=== PATIENT | female | born 1995 | race Caucasian/White ===

== ENCOUNTER 2024-05-30 17:39 | Emergency (ER) | payer SELFPAY ==
[2024-05-30 17:40] VITALS: BP 123/96
[2024-05-30 17:41] VITALS: BP 123/96
--- NOTE | 2024-05-30 17:54 | ED.GENMED ---
History of Present Illness
General
Chief Complaint: Overdose Unintentional
Time Seen by Provider: 05/30/24 17:54
History of Present Illness
History of Present Illness:
TIME OF INITIAL ENCOUNTER: 6 PM
HPI: Patient comes in after an opiate overdose. The patient states that she uses IV heroin only. Notes indicate that she overdosed on fentanyl. She was given Narcan prior to arrival. She is somewhat of a limited historian and refuses to give
details.
EXAM:
GENERAL: Patient cannot sit still, cannot keep the gown on and frequently exposes herself, however prior to leaving she did improve
HEENT: Moist oral mucosa
CARDIOVASCULAR: No murmurs, normal heart rate, regular rhythm, No chest wall tenderness
PULMONARY: No respiratory distress, breath sounds are clear and equal
ABDOMEN: Soft with no peritoneal signs, no tenderness
NEUROLOGIC: Excellent strength all extremities, no coordination deficits
PSYCHIATRIC: Insight is somewhat impaired
EXTREMITIES: Nontender, no edema, moves all extremities equally
SKIN: Lesions on the skin consistent with IV drug use
NUMBER AND COMPLEXITY OF PROBLEMS ADDRESSED AT THE ENCOUNTER
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
� Acute Exacerbation and/or Progression of Chronic Illness: This is an acute problem
� Differential Diagnosis includes: Opiate use disorder, opiate overdose
AMOUNT AND/OR COMPLEXITY OF DATA TO BE REVIEWED AND ANALYZED
� I performed an independent evaluation of and my interpretation is:
EKG:
CT:
X-rays:
Laboratory Studies: White count 13.4, hemoglobin normal, bicarb slightly low at 20, glucose 203, hCG negative
Other:
� Review of other/old records: EMS notes�was hemodynamically stable
� Clinical information was obtained by an independent historian: None needed but I did review EMS paperwork
� Prescriptions/Medications Considered but not given:
� Further testing considered but not performed:
RISK OF COMPLICATIONS AND/OR MORBIDITY OR MORTALITY OF PATIENT MANAGEMENT
� Social determinants of health affecting care: Patient states that she lives in [place], [place]
� Discussion with other providers: I spoke to SRIKANTH who evaluated patient at bedside
� Escalation of care including admission/observation vs risk of discharge considered:
ANY OTHER UPDATES:
7:20 PM: The patient had escalating behavior after speaking to SRIKANTH. She is demanding to leave. She is awake and alert talking on her phone trying to find a ride home. She refused to sign paperwork regarding AGAINST MEDICAL ADVICE. The patient
adamantly tells me that this was not a suicidal attempt. This was recreational use. She had no intent of harming herself. Again, I am offered multiple times to help this patient and she adamantly refuses any help.
Phy Exam
Physical Exam
Physical Exam:
See HPI
Course
Orders/Labs/Results
Orders:
Orders
05/30/24 18:04
Lorazepam [Ativan] 1 mg IV NOW STA
Test Result ONCE
05/30/24 18:47
Complete Blood Count/With Diff Urgent
Comprehensive Metabolic Panel Urgent
HCG, Serum Qualitative Screen Urgent
Abnormal Lab Results
05/30/24
18:47
WBC 13.4 H 10^3/uL
(4.8-10.8)
RBC 3.73 L 10^6/uL
(4.20-5.40)
Hct 34.8 L %
(37.0-47.0)
MCH 32.2 H pg
(27.0-31.0)
Abs Immat Gran (auto) 0.1 H 10^3/uL
(0-0.05)
Absolute Neuts (auto) 10.8 H 10^3/uL
(1.4-6.5)
Neutrophils % 80.6 H %
(42.2-75.2)
Lymphocytes % 14.6 L %
(20.5-51.1)
Carbon Dioxide 20 L mmol/L
(22-30)
Glucose 203 H mg/dl
(70-99)
05/30/24 18:47
05/30/24 18:47
Vital Signs
Initial and Last Documented VS:
Initial Vital Signs
Temp Pulse Resp BP Pulse Ox
36.6 C 75 20 123/96 99
05/30/24 17:40 05/30/24 17:40 05/30/24 17:40 05/30/24 17:40 05/30/24 17:40
Last Documented Vital Signs
Temp Pulse Resp BP Pulse Ox
36.6 C 76 24 94/64 100
05/30/24 17:40 05/30/24 19:00 05/30/24 17:53 05/30/24 19:00 05/30/24 19:16
*Critical Care Note
Total Time (30-74mins, 75-104mins- exclusive of procedures): Not Applicable
ED Attending Note
-
Portions of this chart may have been created with voice recognition software.� Occasional wrong word or��sound alike� substitutions may have occurred due to the inherent limitations of voice recognition software.
Discharge Plan
Departure
Patient Disposition: Against Medical Advice
Date of Disposition: 05/30/24
Time of Disposition: 19:25
Discharge Problem:
Opiate or related narcotic overdose
Instructions: Opioid Overdose (DC)
Activity Restrictions/Additional Instructions:
I had somebody from [facility] talk to you. You refused further treatment. You refused any further evaluation here in the emergency department.
Interventions
Interventions:
*Risk Screen - Suicide Last Done: 05/30/24 17:40
*General Assessment Last Done: 05/30/24 17:40
*Neglect/Abuse Screening Last Done: 05/30/24 17:40
*ED COVID-19 Vaccine History Last Done: 05/30/24 17:40
*Nursing Disposition Last Done: 05/30/24 19:45
ED- Cardiac Assessment Last Done: 05/30/24 18:52
ED- Neurological Assessment Last Done: 05/30/24 18:52
ED-Psychological Assessment Last Done: 05/30/24 18:52
ED- Pulmonary Assessment Last Done: 05/30/24 18:52
Discharge Date and Time
Discharge Date/Time: 05/30/24 19:39
Print Language: WELSH
[2024-05-30 18:03] VITALS: BP 111/76
[2024-05-30 18:52] LABS: % Basophils 0.3 % (0-2); % Immature Granulocytes 0.4 % (0-0.5); % Lymphocytes 14.6 % (20.5-51.1); % Monocytes 4.1 % (1.7-9.3); % Neutrophils 80.6 % (42.2-75.2); Absolute Immature Granulocytes 0.1 10^3/uL (0-0.05); Absolute Monocytes 0.6 10^3/uL (0.1-0.6); Absolute Neutrophils 10.8 10^3/uL (1.4-6.5); Hematocrit 34.8 % (37.0-47.0); Mean Corp Hgb Conc. 34.5 g/dL (33.0-37.0); Mean Corpuscular Hgb 32.2 pg (27.0-31.0); Mean Corpuscular Volume 93.3 fL (81.0-99.0); Mean Platelet Volume 10.4 fL (7.4-10.4); Nucleated Red Blood Cells % 0 %; Platelet Count 267 10^3/uL (130-400); Red Blood Cell Count 3.73 10^6/uL (4.20-5.40); Red Cell Dist. Width 11.6 % (11.5-14.5); White Blood Cell Count 13.4 10^3/uL (4.8-10.8)
[2024-05-30 19:00] VITALS: BP 94/64
[2024-05-30 19:04] LABS: HCG, Serum Qualitative Screen Negative
[2024-05-30 19:09] LABS: ALT (SGPT) 16 U/L (0-35); AST (SGOT) 24 U/L (14-36); Albumin 4.3 g/dl (3.5-5.0); Alkaline Phosphatase 49 U/L (38-126); Blood Urea Nitrogen 15 mg/dl (7-17); Calcium 9.5 mg/dl (8.4-10.2); Carbon Dioxide 20 mmol/L (22-30); Chloride 105 mmol/L (98-107); Glucose 203 mg/dl (70-99); Potassium 4.3 mmol/L (3.5-5.1); Sodium 137 mmol/L (135-145); Total Bilirubin 0.3 mg/dl (0.2-1.3); Total Protein 7.1 g/dl (6.3-8.2); eGFR > 60.00
== END 2024-05-30 19:39 | disposition left against medical advice (07) ==
LOC: EMR 17:39
PROVIDERS: EMERGENCY PHYSICIAN Emergency Medicine
DX: T40.2X1A Poisoning by other opioids, accidental (unintentional), initial encounter (principal); F11.90 Opioid use, unspecified, uncomplicated; Z53.29 Procedure and treatment not carried out because of patient's decision for other reasons
CPT/HCPCS: 99284; 80053; 84703; 85025; 93005

== ENCOUNTER 2024-07-05 00:45 | Emergency (ER) | payer SELFPAY ==
[2024-07-05 00:53] VITALS: BP 124/84
[2024-07-05 01:19] LABS: % Basophils 0.2 % (0-2); % Eosinophils 1.5 % (0-6); % Immature Granulocytes 0.4 % (0-0.5); % Lymphocytes 22.9 % (20.5-51.1); % Monocytes 8.1 % (1.7-9.3); % Neutrophils 66.9 % (42.2-75.2); Absolute Eosinophils 0.2 10^3/uL (0-0.7); Absolute Immature Granulocytes 0.1 10^3/uL (0-0.05); Absolute Lymphocytes 2.6 10^3/uL (1.2-3.4); Absolute Monocytes 0.9 10^3/uL (0.1-0.6); Absolute Neutrophils 7.7 10^3/uL (1.4-6.5); Hematocrit 36.9 % (37.0-47.0); Hemoglobin 13.1 g/dL (12.0-16.0); Mean Corp Hgb Conc. 35.5 g/dL (33.0-37.0); Mean Corpuscular Hgb 30.7 pg (27.0-31.0); Mean Corpuscular Volume 86.4 fL (81.0-99.0); Mean Platelet Volume 9.3 fL (7.4-10.4); Nucleated Red Blood Cells % 0 %; Platelet Count 340 10^3/uL (130-400); Red Blood Cell Count 4.27 10^6/uL (4.20-5.40); Red Cell Dist. Width 11.9 % (11.5-14.5); White Blood Cell Count 11.5 10^3/uL (4.8-10.8)
[2024-07-05 01:40] LABS: Blood Urea Nitrogen 20 mg/dl (7-17); Calcium 9.7 mg/dl (8.4-10.2); Carbon Dioxide 19 mmol/L (22-30); Chloride 104 mmol/L (98-107); Glucose 102 mg/dl (70-99); Potassium 4.1 mmol/L (3.5-5.1); Sodium 137 mmol/L (135-145); eGFR > 60.00
[2024-07-05 04:42] VITALS: BP 109/78; BMI 22.0
[2024-07-05 06:55] VITALS: BP 105/73
[2024-07-05 07:00] VITALS: BP 95/74
--- NOTE | 2024-07-05 07:03 | ED.GENMED ---
History of Present Illness
General
Chief Complaint: Throat Problem
Source: patient
Exam Limitations: none
Time Seen by Provider: 07/05/24 06:55
Nursing documentation reviewed up to this point in time: agreed with
History of Present Illness
History of Present Illness:
28-year-old female presents Emergency Department due to a sore throat and pus drainage. She was recently hospitalized for tonsillitis at [facility]. She was tested for strep, it was negative. She was sent home on clindamycin and
Celebrex. She states she had a CT scan that did not show an abscess, but is worsening now.
Past History
Past History
ED Past Medical History: Asthma and Other (PCOS, tonsillitis)
ED Past Surgical History: None
Social History
Tobacco: Non-smoker
Alcohol: None
Drug: Narcotics
Review of Systems
Review of Systems
Allergies reviewed?: Yes
All Other Systems: Not applicable
Constitutional: Reports no symptoms
EENT: Reports sore throat
Cardiac: Reports no symptoms
ABD/GI: Reports no symptoms
: Reports no symptoms
Musculoskeletal: Reports no symptoms
Skin: Reports no symptoms
Neurological: Reports no symptoms
Endocrine: Reports no symptoms
Hematologic/Lymphatic: Reports no symptoms
Psychiatric: Reports no symptoms
Phy Exam
Physical Exam
Physical Exam:
Physical Exam
General: no apparent distress, not acutely ill
Neck: supple. no meningeal signs. normal posterior pharynx
Heart: s1/s2 regular rate and rhythm, no murmur. equal radial
pulses.
HEENT: Pupils equal round reactive to light, EOMI, left-sided tonsillar enlargement with moderate exudate
Lungs: no acute respiratory distress. clear bilaterally
Abdomen: normal bowel sounds. not tender. no CVAT
Neuro: alert and oriented. no focal neurological deficits cranial nerves II through XII intact
Skin: no rash
Psychiatric: well kept. interactive and cooperative
Extremities: no edema. no calf tenderness. negative homans. good distal pulses
Course
Orders/Labs/Results
Orders:
Orders
07/05/24 01:09
Basic Metabolic Panel Urgent
Complete Blood Count/With Diff Urgent
HCG, Serum Qualitative Screen Urgent
Comment: ADD ON
Rapid Strep Group A Urgent
ROSALINA Source: Throat/Pharynx
Specimen Description:
Date Specimen was Collected: 07/05/24
Time Specimen was Collected: 01:01
07/05/24 07:01
CT Neck With Iv Contrast Urgent
Comment:
Reason For Exam: left tonsillar/pharyngeal erythema, swelling
Dexamethasone Sod Phosphate [Decadron] 10 mg IV NOW STA
07/05/24 07:04
Lactated Ringers [Lr] 1,000 ml IV BOLUS
07/05/24 07:08
Add On- LAB Urgent
Tests Added?: HCG qual, serum
07/05/24 07:28
Monotest Urgent
Abnormal Lab Results
07/05/24
01:09
WBC 11.5 H 10^3/uL
(4.8-10.8)
Hct 36.9 L %
(37.0-47.0)
Abs Immat Gran (auto) 0.1 H 10^3/uL
(0-0.05)
Absolute Neuts (auto) 7.7 H 10^3/uL
(1.4-6.5)
Absolute Monos (auto) 0.9 H 10^3/uL
(0.1-0.6)
Carbon Dioxide 19 L mmol/L
(22-30)
BUN 20 H mg/dl
(7-17)
Glucose 102 H mg/dl
(70-99)
07/05/24 01:09
07/05/24 01:09
Vital Signs
Initial and Last Documented VS:
Initial Vital Signs
Temp Pulse Resp BP Pulse Ox
97.9 F 106 22 124/84 98
07/05/24 00:53 07/05/24 00:53 07/05/24 00:53 07/05/24 00:53 07/05/24 00:53
Last Documented Vital Signs
Temp Pulse Resp BP Pulse Ox
98.5 F 72 20 126/71 99
07/05/24 09:56 07/05/24 09:56 07/05/24 09:56 07/05/24 09:56 07/05/24 09:56
MDM/Problems Addressed
Differential Diagnosis Includes:
Peritonsillar abscess, tonsillitis
MDM/Problems Addressed:
28-year-old female with tonsillitis, unclear etiology. Strep negative. Patient will continue clindamycin, and short course of prednisone. Follow-up with ENT at [facility]
Chronic conditions affecting care: Asthma
Acute Exacerbation and/or Progression of Chronic Illness: Asthma
*Radiology
Radiology exam reviewed: radiology read reviewed (CT neck shows tonsillitis, mild prevertebral edema, no abscess)
*Pulse Oximetry
Patient hypoxic: no
*Critical Care Note
Total Time (30-74mins, 75-104mins- exclusive of procedures): Not Applicable
Patient Management
Discussion with other providers: [employer] (ENT, Dr. Jesus)
Escalation/DeEscalation of care consider admission/obs:
Admit not indicated
ED Attending Note
-
Portions of this chart may have been created with voice recognition software.� Occasional wrong word or��sound alike� substitutions may have occurred due to the inherent limitations of voice recognition software.
Discharge Plan
Departure
Patient Disposition: Home (Routine Discharge)
Date of Disposition: 07/05/24
Time of Disposition: 10:06
Patient with high blood pressure during this ER visit?: Yes
Condition: Good
Discharge Problem:
Acute tonsillitis
Instructions: Sore throat in adults, BLOOD PRESSURE
Prescriptions:
New
prednisone 10 mg tablet
50 mg PO DAILY Qty: 25 0RF
Referrals:
NONE,* [Family Provider] -
Interventions
Interventions:
*Risk Screen - Suicide Last Done: 07/05/24 00:53
*General Assessment Last Done: 07/05/24 06:55
*Neglect/Abuse Screening Last Done: 07/05/24 00:53
ED- Fall Risk Assessment Last Done: 07/05/24 04:49
*ED COVID-19 Vaccine History Last Done: 07/05/24 06:55
*Nursing Disposition Last Done: 07/05/24 10:16
ED-EENT Assessment Last Done: 07/05/24 04:49
ED- Pulmonary Assessment Last Done: 07/05/24 04:49
Discharge Date and Time
Discharge Date/Time: 07/05/24 10:18
Print Language: THAI
[2024-07-05] MEDS: LR 1000 IV (07:27)
[2024-07-05] MEDS: DECADRON 10 MG IV (07:27)
[2024-07-05 07:48] LABS: HCG, Serum Qualitative Screen Negative
[2024-07-05 08:00] VITALS: BP 105/67
[2024-07-05 08:09] LABS: Monotest Negative (Negative)
[2024-07-05 09:56] VITALS: BP 126/71
--- NOTE | 2024-07-05 09:56 | EDRN ---
the pt pressed the call gordon and this RN entered the pts room, the pt stated that she needed to use the bathroom, this RN unhooked the pt from the monitor and the pt was able to ambulate to the bathroom with no issues, the pt ambulated back to the
stretcher and is resting in stretcher in the lowest position, side rails up x2, call gordon within reach, HOB elevated, no s/s of distress, awaiting for Dr. Bermudez to come to the pts bedside to update the pt on the plan of care
--- NOTE | 2024-07-05 10:10 | EDRN ---
Dr. Bermudez currently at the pts bedside discussing discharge with the pt, this RN provided the pt with ice water per the providers request and the pt was able to drink water with no issues
== END 2024-07-05 10:18 | disposition home or self-care (01) ==
LOC: EMR 00:45
PROVIDERS: Emergency Medicine; EMERGENCY PHYSICIAN Emergency Medicine
DX: J03.90 Acute tonsillitis, unspecified (principal); R03.0 Elevated blood-pressure reading, without diagnosis of hypertension; J45.909 Unspecified asthma, uncomplicated
CPT/HCPCS: 99285; 96374; 96361; 70491; 80048; 84703; 85025; 86308; 87070; 87880; Q9967

== ENCOUNTER 2024-08-04 08:53 | Emergency (ER) | payer OTHER, SELFPAY ==
[2024-08-04 08:55] VITALS: BP 118/86
--- NOTE | 2024-08-04 10:09 | ED.GENMED ---
History of Present Illness
General
Chief Complaint: Skin Problem
Time Seen by Provider: 08/04/24 09:59
History of Present Illness
History of Present Illness:
28-year-old female presents to the emergency department for evaluation of diffuse itchy rash to the entire body for the past 2 weeks. Denies any new medications or topical products used. She did have strep pharyngitis prior to this however states
that her antibiotics were completed before the onset of the rash. Spread from the extremities up toward the face, spares the palms and soles. Not worse at nighttime.
Past History
Past History
ED Past Medical History: Asthma and Other (PCOS, tonsillitis)
ED Past Surgical History: None
Social History
Tobacco: Non-smoker
Alcohol: None
Drug: Narcotics
Review of Systems
Review of Systems
Allergies reviewed?: Yes
All Other Systems: ROS reviewed and negative except as documented in HPI and ROS
Phy Exam
Physical Exam
Physical Exam:
GEN: Well appearing, NAD, WDWN
HEENT: Oral mucosa moist, no scleral icterus, no intra oral lesions, slight tonsillar hypertrophy no exudates
Cardiac: Regular rate
Lung: No respiratory distress, no tachypnea
MSK: No gross deformity or injuries
Skin: Good color, no pallor or jaundice, widespread maculopapular exanthem with central scaling essentially encompassing entire body, sparing pales and soles.
Neuro: AO x3, moves all extremities freely
Psych: Calm, cooperative
Course
Vital Signs
Initial and Last Documented VS:
Initial Vital Signs
Temp Pulse Resp BP Pulse Ox
98.4 F 108 18 118/86 98
08/04/24 08:55 08/04/24 08:55 08/04/24 08:55 08/04/24 08:55 08/04/24 08:55
Last Documented Vital Signs
Temp Pulse Resp BP Pulse Ox
98.4 F 108 18 118/86 98
08/04/24 08:55 08/04/24 08:55 08/04/24 08:55 08/04/24 08:55 08/04/24 08:55
MDM/Problems Addressed
MDM/Problems Addressed:
Likely viral exanthem, apparently began after a course of antibiotics for strep so not likely drug exanthem. Will treat with steroids due to widespread involvement
*Critical Care Note
Total Time (30-74mins, 75-104mins- exclusive of procedures): Not Applicable
ED Attending Note
-
Portions of this chart may have been created with voice recognition software.� Occasional wrong word or��sound alike� substitutions may have occurred due to the inherent limitations of voice recognition software.
Discharge Plan
Departure
Patient Disposition: Home (Routine Discharge)
Date of Disposition: 08/04/24
Time of Disposition: 10:15
Patient with high blood pressure during this ER visit?: No
Discharge Problem:
Dermatitis
Instructions: Viral Exanthem ED
Prescriptions:
New
prednisone 20 mg tablet
40 mg PO DAILY 5 Days Qty: 10 0RF
No Action
prednisone 10 mg tablet
50 mg PO DAILY Qty: 25 0RF
Stand Alone Forms: Return to Work
Interventions
Interventions:
*Risk Screen - Suicide Last Done: 08/04/24 08:55
*General Assessment Last Done: 08/04/24 08:55
*Neglect/Abuse Screening Last Done: 08/04/24 08:55
ED- Fall Risk Assessment Last Done: 08/04/24 10:16
*ED COVID-19 Vaccine History Last Done: 08/04/24 08:55
*Nursing Disposition Last Done: 08/04/24 10:24
ED-Skin Assessment Last Done: 08/04/24 10:15
Discharge Date and Time
Discharge Date/Time: 08/04/24 10:25
Print Language: MALAWIAN
== END 2024-08-04 10:25 | disposition home or self-care (01) ==
LOC: EMR 08:53
PROVIDERS: EMERGENCY PHYSICIAN Emergency Medicine
DX: L30.9 Dermatitis, unspecified (principal)
CPT/HCPCS: 99282

== ENCOUNTER 2024-08-11 19:15 | Emergency (ER) | payer OTHER, SELFPAY ==
[2024-08-11 19:29] VITALS: BP 122/86
[2024-08-11 19:53] LABS: % Basophils 0.2 % (0-2); % Eosinophils 1.8 % (0-6); % Immature Granulocytes 0.3 % (0-0.5); % Lymphocytes 16.2 % (20.5-51.1); % Neutrophils 76.5 % (42.2-75.2); Absolute Eosinophils 0.2 10^3/uL (0-0.7); Absolute Lymphocytes 1.6 10^3/uL (1.2-3.4); Absolute Monocytes 0.5 10^3/uL (0.1-0.6); Absolute Neutrophils 7.5 10^3/uL (1.4-6.5); Hemoglobin 12.5 g/dL (12.0-16.0); Mean Corp Hgb Conc. 32.9 g/dL (33.0-37.0); Mean Corpuscular Hgb 29.3 pg (27.0-31.0); Mean Platelet Volume 9.5 fL (7.4-10.4); Nucleated Red Blood Cells % 0 %; Platelet Count 344 10^3/uL (130-400); Red Blood Cell Count 4.27 10^6/uL (4.20-5.40); Red Cell Dist. Width 12.9 % (11.5-14.5); White Blood Cell Count 9.8 10^3/uL (4.8-10.8)
[2024-08-11 20:11] LABS: ALT (SGPT) 21 U/L (0-35); AST (SGOT) 24 U/L (14-36); Albumin 4.1 g/dl (3.5-5.0); Alkaline Phosphatase 134 U/L (38-126); Blood Urea Nitrogen 15 mg/dl (7-17); Calcium 9.4 mg/dl (8.4-10.2); Carbon Dioxide 28 mmol/L (22-30); Chloride 98 mmol/L (98-107); Glucose 88 mg/dl (70-99); Potassium 4.4 mmol/L (3.5-5.1); Sodium 135 mmol/L (135-145); Total Bilirubin 0.7 mg/dl (0.2-1.3); Total Protein 7.7 g/dl (6.3-8.2); eGFR > 60.00
== END 2024-08-11 22:25 ==
LOC: EMR 19:15
PROVIDERS: Emergency Medicine
DX: R21 Rash and other nonspecific skin eruption (principal); Z53.21 Procedure and treatment not carried out due to patient leaving prior to being seen by health care provider
CPT/HCPCS: 99281; 80053; 85025

== ENCOUNTER 2024-09-06 23:32 | Emergency (ER) | payer OTHER, SELFPAY ==
[2024-09-06 23:39] VITALS: BP 101/68
[2024-09-07 00:47] VITALS: BP 100/85
[2024-09-07 01:10] LABS: % Basophils 0.4 % (0-2); % Eosinophils 3.2 % (0-6); % Immature Granulocytes 0.2 % (0-0.5); % Lymphocytes 21.8 % (20.5-51.1); % Monocytes 5.4 % (1.7-9.3); Absolute Eosinophils 0.3 10^3/uL (0-0.7); Absolute Lymphocytes 1.8 10^3/uL (1.2-3.4); Absolute Monocytes 0.5 10^3/uL (0.1-0.6); Absolute Neutrophils 5.7 10^3/uL (1.4-6.5); Hematocrit 39.2 % (37.0-47.0); Hemoglobin 13.1 g/dL (12.0-16.0); Mean Corp Hgb Conc. 33.4 g/dL (33.0-37.0); Mean Corpuscular Hgb 29.6 pg (27.0-31.0); Mean Corpuscular Volume 88.7 fL (81.0-99.0); Nucleated Red Blood Cells % 0 %; Platelet Count 330 10^3/uL (130-400); Red Blood Cell Count 4.42 10^6/uL (4.20-5.40); Red Cell Dist. Width 13.6 % (11.5-14.5); White Blood Cell Count 8.3 10^3/uL (4.8-10.8)
--- NOTE | 2024-09-07 01:14 | ED.GENMED ---
History of Present Illness
<Levi Nicholson DO - Last Filed: 09/07/24 03:00>
General
Chief Complaint: Throat Problem
Source: patient and records
Exam Limitations: none
Time Seen by Provider: 09/07/24 00:55
Nursing documentation reviewed up to this point in time: agreed with
History of Present Illness
History of Present Illness:
28-year-old female asthma substance abuse, presents for a rash started 4 to 5 weeks ago seen in the ER diagnosed with pharyngitis, diagnosed with a rash, treated with steroids with some antibiotics, without much improvement, states she has a hoarse
voice, no fever rashes diffuse worse on her upper extremities, has been coughing, wheezing, admitted [facility] previously for asthma, no fevers no hemoptysis
Past History
<Levi Nicholson DO - Last Filed: 09/07/24 03:00>
Past History
ED Past Medical History: Asthma and Other (PCOS, tonsillitis)
ED Past Surgical History: None
Social History
Tobacco: Non-smoker
Alcohol: None
Drug: Narcotics
Personal: Single
Living: with roommate (10 roommates)
Employment: Employed
Review of Systems
<Levi Nicholson DO - Last Filed: 09/07/24 03:00>
Review of Systems
All Other Systems: Not applicable
Constitutional: Denies fever or fatigue
EENT: Reports sore throat and mouth pain
Respiratory: Reports cough and trouble breathing
Cardiac: Reports no symptoms
ABD/GI: Reports no symptoms
Skin: Reports itching and rash
Phy Exam
<Levi Nicholson DO - Last Filed: 09/07/24 03:00>
Physical Exam
Physical Exam:
Physical Exam
General: Chronically ill female coughing sounds hoarse
Neck: Posterior pharynx is red no exudates no drooling
Heart: s1/s2 regular rate and rhythm, no murmur. equal radial pulses.
Lungs: Expiratory wheeze
Abdomen: Nontender
Neuro: alert and oriented. no focal neurological deficits
Skin: Diffuse red raised dermatitis
Psychiatric: well kept. interactive and cooperative
Extremities: Hidradenitis in her left axilla
Sepsis
<Dori Hernandez, DO - Last Filed: 09/07/24 06:51>
Sepsis Screening
Sepsis Assessment: Sepsis Ruled Out
Sepsis Screen
Sepsis Screen: Sepsis Ruled Out
Date: 09/07/24
Time: 06:51
Course
<Levi Nicholson, DO - Last Filed: 09/07/24 03:00>
Orders/Labs/Results
Orders:
Orders
09/06/24 23:44
CBC/With ESR Urgent
CMP [Comprehensive Metabolic Panel] Urgent
09/07/24 00:54
HCG, Serum Qualitative Screen Urgent
Comment: ADD ON
09/07/24 00:55
C-Reactive Protein Urgent
Comment: ADD ON
09/07/24 01:11
Dexamethasone Sod Phosphate [Decadron] 10 mg IV NOW STA
Diphenhydramine [Benadryl] 25 mg IV NOW STA
09/07/24 01:12
Add On- LAB Urgent
Tests Added?: hcg qualitative
Ipratropium/Albuterol Sulfate [Duoneb] 3 ml INH R NOW STA
09/07/24 01:13
0.9% Sodium Chloride 1000 ml [Nss] 1,000 ml IV BOLUS
EPINEPHrine PF [Adrenalin] 0.3 mg IM NOW STA
CR Chest - 2 Views Urgent
Comment:
Reason For Exam: cough
09/07/24 01:19
Famotidine [Pepcid] 20 mg IV NOW STA
09/07/24 01:33
Add On- LAB Urgent
Tests Added?: crp
Soft Tissue, Neck [CR Soft Tissue Neck ] Urgent
Comment:
Reason For Exam: sore throat
09/07/24 01:38
Influenza A+B Rapid Molecular Urgent
ROSALINA Source: Nasal Swab
Specimen Description:
09/07/24 02:07
Rapid Strep Group A Urgent
ROSALINA Source: T
Specimen Description:
09/07/24 02:12
CT Neck With Iv Contrast Urgent
Comment:
Reason For Exam: Stridor inability to swallow
09/07/24 22:00
Famotidine [Pepcid] 20 mg IV HS
Abnormal Lab Results
09/07/24 09/07/24
00:54 00:55
ESR 80 H mm/hour
(0-20)
BUN 18 H mg/dl
(7-17)
Glucose 104 H mg/dl
(70-99)
C-Reactive Protein 19.80 H mg/L
(0.0-10.00)
Total Protein 8.5 H g/dl
(6.3-8.2)
09/07/24 00:55
09/07/24 00:54
Vital Signs
Initial and Last Documented VS:
Initial Vital Signs
Temp Pulse Resp BP Pulse Ox
98.9 F 102 24 101/68 98
09/06/24 23:39 09/06/24 23:39 09/06/24 23:39 09/06/24 23:39 09/06/24 23:39
Last Documented Vital Signs
Temp Pulse Resp BP Pulse Ox
98.9 F 69 19 102/62 98
09/06/24 23:39 09/07/24 04:23 09/07/24 04:23 09/07/24 04:00 09/07/24 04:15
<Dori Hernandez, DO - Last Filed: 09/07/24 06:51>
Orders/Labs/Results
Orders:
Orders
09/06/24 23:44
CBC/With ESR Urgent
CMP [Comprehensive Metabolic Panel] Urgent
09/07/24 00:54
HCG, Serum Qualitative Screen Urgent
Comment: ADD ON
09/07/24 00:55
C-Reactive Protein Urgent
Comment: ADD ON
09/07/24 01:11
Dexamethasone Sod Phosphate [Decadron] 10 mg IV NOW STA
Diphenhydramine [Benadryl] 25 mg IV NOW STA
09/07/24 01:12
Add On- LAB Urgent
Tests Added?: hcg qualitative
Ipratropium/Albuterol Sulfate [Duoneb] 3 ml INH R NOW STA
09/07/24 01:13
0.9% Sodium Chloride 1000 ml [Nss] 1,000 ml IV BOLUS
EPINEPHrine PF [Adrenalin] 0.3 mg IM NOW STA
CR Chest - 2 Views Urgent
Comment:
Reason For Exam: cough
09/07/24 01:19
Famotidine [Pepcid] 20 mg IV NOW STA
09/07/24 01:33
Add On- LAB Urgent
Tests Added?: crp
Soft Tissue, Neck [CR Soft Tissue Neck ] Urgent
Comment:
Reason For Exam: sore throat
09/07/24 01:38
Influenza A+B Rapid Molecular Urgent
ROSALINA Source: Nasal Swab
Specimen Description:
09/07/24 02:07
Rapid Strep Group A Urgent
ROSALINA Source: T
Specimen Description:
09/07/24 02:12
CT Neck With Iv Contrast Urgent
Comment:
Reason For Exam: Stridor inability to swallow
09/07/24 22:00
Famotidine [Pepcid] 20 mg IV HS
Abnormal Lab Results
09/07/24 09/07/24
00:54 00:55
ESR 80 H mm/hour
(0-20)
BUN 18 H mg/dl
(7-17)
Glucose 104 H mg/dl
(70-99)
C-Reactive Protein 19.80 H mg/L
(0.0-10.00)
Total Protein 8.5 H g/dl
(6.3-8.2)
09/07/24 00:55
09/07/24 00:54
Vital Signs
Initial and Last Documented VS:
Initial Vital Signs
Temp Pulse Resp BP Pulse Ox
98.9 F 102 24 101/68 98
09/06/24 23:39 09/06/24 23:39 09/06/24 23:39 09/06/24 23:39 09/06/24 23:39
Last Documented Vital Signs
Temp Pulse Resp BP Pulse Ox
98.9 F 69 19 102/62 98
09/06/24 23:39 09/07/24 04:23 09/07/24 04:23 09/07/24 04:00 09/07/24 04:15
<Levi Nicholson DO - Last Filed: 09/07/24 03:00>
MDM/Problems Addressed
Differential Diagnosis Includes:
Allergic autoimmune infectious viral
MDM/Problems Addressed:
Rash cough sore throat asthma
Chronic conditions affecting care: Asthma
Acute Exacerbation and/or Progression of Chronic Illness:
Substance abuse
Acute Exacerbation and/or Progression of Chronic Illness: Asthma
<Levi Nicholson DO - Last Filed: 09/07/24 03:00>
*Radiology
Radiology exam reviewed: preliminary read by ED provider
*Pulse Oximetry
Patient hypoxic: no
*Allergy And Immunology Specialist Interpretation
Rate: normal
Interpretation: normal
Heart Rate: 78
Rhythm: sinus
*Critical Care Note
Total Time (30-74mins, 75-104mins- exclusive of procedures): Not Applicable
<Dori Hernandez DO - Last Filed: 09/07/24 06:51>
*Radiology
Radiology exam reviewed: radiology read reviewed (CAT scan compared to previous July 05, 2021. Unchanged mild thickening of the epiglottis with slight improvement of submucosal edema and in the supraglottic larynx. Decreasing mild enlargement
of the palatine tonsils. No peritonsillar collection/abscess.)
<Levi Nicholson, DO - Last Filed: 09/07/24 03:00>
Update Note
Update Note:
2:12 AM update chest x-ray noted, neck x-ray noted question steeple sign, patient clinically appears improved is resting, still hoarse, will check CT of the neck, she does tell me if she to go to rehab no longer using drugs
3 AM patient appears improved, I believe if her CT does not show any significant pathology she can be discharged home to follow-up with dermatology
ED Attending Note
<Levi Nicholson, DO - Last Filed: 09/07/24 03:00>
-
Portions of this chart may have been created with voice recognition software.� Occasional wrong word or��sound alike� substitutions may have occurred due to the inherent limitations of voice recognition software.
Discharge Plan
Departure
Patient Disposition: Home (Routine Discharge)
Date of Disposition: 09/07/24
Time of Disposition: 03:00
Patient with high blood pressure during this ER visit?: No
Condition: Good
Discharge Problem:
Pharyngitis, Rash
Instructions: Sore throat in adults, Sore Throat, Adult (DC), Skin Rash (DC), Skin rash - ED discharge instructions
Prescriptions:
New
methylprednisolone [Medrol (Reynold)] 4 mg tablets,dose pack
See Rx Instructions .ROUTE .COMPLEX Qty: 21 0RF
Rx Instructions:
for 6 days
hydrocortisone 2.5 % cream
1 applic topical BID PRN (Reason: rash) Qty: 20 0RF
diphenhydramine HCl [Benadryl Allergy] 25 mg tablet
25 mg PO TID PRN (Reason: itching) Qty: 30 0RF
albuterol sulfate 90 mcg/actuation HFA aerosol inhaler
2 puff inhalation Q6H PRN (Reason: shortness of breath or wheezing) Qty: 8.5 2RF
No Action
prednisone 10 mg tablet
50 mg PO DAILY Qty: 25 0RF
prednisone 20 mg tablet
40 mg PO DAILY 5 Days Qty: 10 0RF
Referrals:
[employer] [facility], [Non-Admitting Privileges] - Next open appointment
NONE,* [Family Provider] -
Stand Alone Forms: Return to Work
Interventions
Interventions:
*Risk Screen - Suicide Last Done: 09/06/24 23:39
*General Assessment Last Done: 09/07/24 00:42
*Neglect/Abuse Screening Last Done: 09/06/24 23:39
*ED- Fall Risk Assessment Last Done: 09/07/24 00:42
*ED COVID-19 Vaccine History Last Done: 09/07/24 00:42
*Nursing Disposition Last Done: 09/07/24 04:40
ED- Pulmonary Assessment Last Done: 09/07/24 00:43
Discharge Date and Time
Discharge Date/Time: 09/07/24 04:43
Print Language: KAZAKH
[2024-09-07 01:21] LABS: HCG, Serum Qualitative Screen Negative
[2024-09-07 01:25] LABS: ALT (SGPT) 17 U/L (0-35); AST (SGOT) 26 U/L (14-36); Albumin 4.1 g/dl (3.5-5.0); Alkaline Phosphatase 112 U/L (38-126); Blood Urea Nitrogen 18 mg/dl (7-17); Calcium 10.1 mg/dl (8.4-10.2); Carbon Dioxide 26 mmol/L (22-30); Chloride 103 mmol/L (98-107); Glucose 104 mg/dl (70-99); Sodium 139 mmol/L (135-145); Total Bilirubin 0.4 mg/dl (0.2-1.3); Total Protein 8.5 g/dl (6.3-8.2); eGFR > 60.00
[2024-09-07] MEDS: PEPCID 20 MG IV (01:30)
[2024-09-07] MEDS: BENADRYL 25 MG IV (01:30)
[2024-09-07] MEDS: NSS 1000 IV (01:30)
[2024-09-07 01:31] LABS: Erythrocyte Sed Rate 80 mm/hour (0-20)
[2024-09-07] MEDS: DECADRON 10 MG IV (01:31)
[2024-09-07] MEDS: DUONEB 3 ML INH (01:31)
[2024-09-07] MEDS: ADRENALIN 0.3 MG IM (01:31)
[2024-09-07 02:05] VITALS: BP 113/65
[2024-09-07 03:28] VITALS: BP 107/52
[2024-09-07 03:51] VITALS: BP 95/51
[2024-09-07 04:00] VITALS: BP 102/62
== END 2024-09-07 04:43 | disposition home or self-care (01) ==
LOC: EMR 23:32
PROVIDERS: EMERGENCY PHYSICIAN Emergency Medicine
DX: R21 Rash and other nonspecific skin eruption (principal); J02.9 Acute pharyngitis, unspecified; R06.2 Wheezing; R05.9 Cough, unspecified; L29.9 Pruritus, unspecified; J35.1 Hypertrophy of tonsils; J45.909 Unspecified asthma, uncomplicated; E28.2 Polycystic ovarian syndrome; F19.11 Other psychoactive substance abuse, in remission; Z88.0 Allergy status to penicillin; Z91.040 Latex allergy status
CPT/HCPCS: 99284; 96374; 96375 ×2; 96361; 94640; 96372; 70360; 70491; 71046; 80053; 84703; 85025; 85652; 86140; 87070; 87502; 87880; Q9967